=== PATIENT | male | born 1930 | race Asian ===

== ENCOUNTER 2018-10-19 18:26 | Emergency (ER) | payer MEDICARE, OTHER ==
[~2018-10-19] VITALS: Ht 167.6 cm; Wt 83.9 kg
[2018-10-19] MEDS ORDERED: Albuterol/Ipratropium 3ml neb ONE (18:34)
[2018-10-19] MEDS ORDERED: OMEPRAZOLE20 M2 ORAL (18:44)
[2018-10-19] MEDS ORDERED: ROBITUSSIN NIG237 M1 PO (18:44)
[2018-10-19] MEDS ORDERED: XARELTO15 MG ORAL (18:44)
[2018-10-19] MEDS ORDERED: NAMENDA10 MG ORAL (18:44)
[2018-10-19] MEDS ORDERED: ATIVAN0.5 MG ORAL (18:44)
[2018-10-19] MEDS ORDERED: MELATONIN3 MG ORAL (18:44)
[2018-10-19] MEDS ORDERED: NAMENDA XR14 MG PO (18:44)
[2018-10-19] MEDS ORDERED: LIPITOR20 MG ORAL (18:44)
[2018-10-19] MEDS ORDERED: VENTOLIN HFA18 GM INH (18:44)
[2018-10-19] MEDS ORDERED: DOCUSATE SODIU100 M2 ORAL (18:44)
[2018-10-19] MEDS ORDERED: LEXAPRO10 MG ORAL (18:44)
[2018-10-19] MEDS ORDERED: FUROSEMIDE20 M1 ORAL (18:44)
[2018-10-19] MEDS ORDERED: METOPROLOL TART50 M1 ORAL (18:44)
[2018-10-19] MEDS ORDERED: FEOSOL1 TAB ORAL (18:44)
[2018-10-19] MEDS ORDERED: MICARDIS40 MG ORAL (18:44)
[2018-10-19] MEDS ORDERED: HUMULIN R100 UNIT/1 SUBQ (18:44)
[2018-10-19] MEDS ORDERED: POTASSIUM CHLO10 ME2 PO (18:44)
[2018-10-19] MEDS ORDERED: NITROSTAT0.4 M2 SL (18:44)
[2018-10-19] MEDS ORDERED: CLONIDINE HCL0.1 MG PO (18:44)
[2018-10-19] MEDS: Metoprolol 5mg/5ml Inj IVP SCH ×2 (18:49→19:04)
[2018-10-19 18:53] LABS: HEMATOCRIT 34.1 % (42.0-52.0); HEMOGLOBIN 9.6 G/DL (14.2-18.0); MEAN CORPUSCULAR VOLUME 80 FL (80-99); PLATELET COUNT 357 K/UL (150-450); RED BLOOD COUNT 4.27 M/UL (4.70-6.10); RED CELL DISTRIBUTION WIDTH 22.1 % (11.6-14.8); WHITE BLOOD COUNT 15.6 K/UL (4.8-10.8)
[2018-10-19 19:07] VITALS: BP 66/51
[2018-10-19 19:08] LABS: ANION GAP 5 mmol/L (5-15); BLOOD UREA NITROGEN 50 mg/dL (7-18); CALCIUM 9.3 MG/DL (8.5-10.1); CARBON DIOXIDE 38 MMOL/L (21-32); CHLORIDE 101 MMOL/L (98-107); CREATININE 1.6 MG/DL (0.55-1.30); POTASSIUM 5.6 MMOL/L (3.5-5.1); SODIUM 143 MMOL/L (136-145)
--- NOTE | 2018-10-19 19:10 | NUR ---
ED Nurse Note: ER WCP UPLOADED
--- NOTE | 2018-10-19 19:14 | NUR ---
ED Nurse Note: PT. BROUGHT IN BY RA 29 FROM [facility] DUE TO SOB MORE THAN USUAL. PER RUBBER MILL OPERATOR, PT. WAS FOUND BY THE FAMILY MEMBER BEING MORE SOB THAN USUAL. PT. CAME IN WITH IV ACCESS ON THE L HAND WITH 20 GAUGE. PT. WAS 86%RA AND WAS GIVEN 15L O2 BY RUBBER MILL OPERATOR VIA NON-REBREATHER MASK. PT. IS CONFUSED AND NON-VERBAL. PT. HAS PRESSURE ULCER ON THE BUTTOCKS AREA
--- NOTE | 2018-10-19 19:15 | NUR ---
ED Nurse Note: ERMD AWARE OF PT LOW BP
--- NOTE | 2018-10-19 19:16 | NUR ---
ED Nurse Note: DAUGHTER AND ERMS AT THE BEDSIDE
--- NOTE | 2018-10-19 19:20 | NUR ---
ED Nurse Note: daughter roya and son ursula at bedside.
[2018-10-19 19:23] LABS: ALANINE AMINOTRANSFERASE 9 U/L (12-78); ALBUMIN 3.9 G/DL (3.4-5.0); ALBUMIN/GLOBULIN RATIO 1.1 (1.0-2.7); ALKALINE PHOSPHATASE 57 U/L (46-116); ASPARTATE AMINO TRANSFERASE 19 U/L (15-37); BILIRUBIN,TOTAL 0.7 MG/DL (0.2-1.0); CKMB 1.7 NG/ML (0.0-3.6); CREATINE KINASE 30 U/L (26-308)
--- NOTE | 2018-10-19 19:31 | Emergency Room Report ---
History of Present Illness General Chief Complaint: Dyspnea/Respdistress Source: Family Member, EMS Present Illness HPI 87-year-old male presents ED for evaluation. Brought in by EMS from [facility] facility. Noted to be short of breath today. History of CHF and A. fib. Appeared more short of breath today than baseline. O2 sats in the 80s. Upon arrival patient nonverbal. History of dementia. Tachycardic. Hypotensive as well. Unable to provide any additional history at this time. No other aggravating relieving factors. Denies any other associated symptoms Allergies: Coded Allergies: No Known Allergies (Unverified , 10/19/18) Patient History Past Medical History: DM, CAD, AFib, dementia Past Surgical History: none, pacemaker Pertinent Family History: none Social History: Denies: smoking, alcohol use, drug use Immunizations: UTD Reviewed Nursing Documentation: PMH: Agreed; PSxH: Agreed Nursing Documentation-PMH Hx Cardiac Problems: Yes - AFIB, PACEMAKER, CAD, CHF Hx Hypertension: Yes - ANEMIA Hx Diabetes: Yes Hx Cancer: Yes - COLON CA Hx Neurological Problems: Yes - DEMENTIA Review of Systems All Other Systems: limited Physical Exam Vital Signs Date Time Temp Pulse Resp B/P (MAP) Pulse Ox O2 Delivery O2 Flow Rate FiO2 10/19/18 18:24 126 26 114/86 (95) 86 Room Air 10/19/18 19:07 98.0 Sp02 EP Interpretation: reviewed, abnormal General Appearance: lethargic, other - nonverbal Head: normocephalic Eyes: bilateral eye normal inspection, bilateral eye PERRL ENT: hearing grossly normal, normal pharynx, no angioedema, normal voice Neck: full range of motion, supple/symm/no masses Respiratory: crackles Cardiovascular #1: tachycardia Gastrointestinal: normal bowel sounds, non tender, soft, non-distended, no guarding, no rebound Rectal: deferred Genitourinary: no CVA tenderness Musculoskeletal: normal inspection Neurologic: other - nonverbal Psychiatric: other - nonverbal Skin: other - see nursing notes for skin exam Lymphatic: normal inspection Procedures Critical Care Time Critical Care Time i. I feel this is a highly complex case requiring extensive working including EKG/Rhythm strip, Xray/CT/US, Blood/urine lab work, repeat exams while in ED, and administration of strong opiates/narcotics for pain control, admission to hospital or close patient follow up. Total time: 60 min bedside evaluation and treatment excludes procedures (EKG). Reason for critical care: SOB, hypotension, acidosis Possible complications: hypotension, hypertension, AZ, shock, arrhythmias, metabolic acidosis, end organ damage, respiratory failure. Interventions: labs, EKG, CXR, BIPAP, ABG, IVFs, antibiotics Course: Presenting with shortness of breath. History of CHF and A. fib. Patient given Lopressor x3 with cardioversion achieved. Patient has large right -sided effusion with whiteout on the left side. ABG shows significant acidosis with hypercapnia. Placed on BiPAP. Patient becoming hypotensive despite IV fluid boluses. Discussed with family. Patient is DNR, selective. They wish to not intubate the patient for undergo invasive measures such as central line with pressors. They understand that without further intervention patient's condition will deteriorate and worsen. 30 cc/kg fluid bolus given. Broad-spectrum antibiotics given. Consultations: nursing staff, EMS, family Performed by: Dr Lyons Tolerated well condition = critical j. because of unstable vital signs this patient had a condition that could potentially threaten life or limb. I feel this is a critical patient who required my full attention while patient was considered critical. Total Critical Care Time excluding procedures was greater than 60 minutes Medical Decision Making Diagnostic Impression: Primary Impression: CHF (congestive heart failure) Qualified Codes: I50.9 - Heart failure, unspecified Additional Impressions: Pleural effusion Atrial fibrillation with RVR Sepsis Qualified Codes: A41.9 - Sepsis, unspecified organism ER Course Hospital Course 87-year-old male presents with shortness of breath, tachycardic, hypoxia Differential diagnoses include: AZ/unstable angina, contusion, muscle strain, PTX, rib fracture Clinical course Patient placed on stretcher. on commercial collections driver. After initial history and physical I ordered labs, EKG, chest x-ray, IVFs, breathing treatments labs reviewed- noted leukocytosis, hemoglobin/hematocrit stable, lactic greater than 3, troponins negative, BNP elevated ABG acidosis, hypercapnia started on BIPAP EKGA. fib with RVR, no acute ischemic changes interpreted by me CXRWhite out on left lung, right pleural effusion on right despite fluid bolus patient becomes hypotensive. O2 sats not significantly improving on BiPAP. Discussed findings with family. Patient is DNR/selective. They wish not to intubate the patient and they wish not to proceed with invasive measures such as a central line and pressors. They understand that patient will continue to deteriorate and likely Patient given 30 cc/kg fluid bolus. Given broad-spectrum antibiotics. Dr. Estrada will admit the patient I. I feel this is a highly complex case requiring extensive working including EKG/Rhythm strip, Xray/CT/US, Blood/urine lab work, repeat exams while in ED, and administration of strong opiates/narcotics for pain control, admission to hospital or close patient follow up. Diagnosis - CHF, pleural effusion, afib wtih RVR, sepsis admitted to SDU in critical condition Labs Test 10/19/18 18:30 10/19/18 18:55 10/19/18 19:03 10/19/18 19:30 White Blood Count 15.6 K/UL (4.8-10.8) Red Blood Count 4.27 M/UL (4.70-6.10) Hemoglobin 9.6 G/DL (14.2-18.0) Hematocrit 34.1 % (42.0-52.0) Mean Corpuscular Volume 80 FL (80-99) Mean Corpuscular Hemoglobin 22.4 PG (27.0-31.0) Mean Corpuscular Hemoglobin Concent 28.1 G/DL (32.0-36.0) Red Cell Distribution Width 22.1 % (11.6-14.8) Platelet Count 357 K/UL (150-450) Mean Platelet Volume 5.6 FL (6.5-10.1) Neutrophils (%) (Auto) % (45.0-75.0) Lymphocytes (%) (Auto) % (20.0-45.0) Monocytes (%) (Auto) % (1.0-10.0) Eosinophils (%) (Auto) % (0.0-3.0) Basophils (%) (Auto) % (0.0-2.0) Differential Total Cells Counted 100 Neutrophils % (Manual) 85 % (45-75) Lymphocytes % (Manual) 9 % (20-45) Monocytes % (Manual) 5 % (1-10) Eosinophils % (Manual) 0 % (0-3) Basophils % (Manual) 0 % (0-2) Band Neutrophils 1 % (0-8) Platelet Estimate Adequate Platelet Morphology Normal Polychromasia 1+ Hypochromasia 2+ Anisocytosis 3+ Microcytosis 2+ Sodium Level 143 MMOL/L (136-145) Potassium Level 5.6 MMOL/L (3.5-5.1) Chloride Level 101 MMOL/L (98-107) Carbon Dioxide Level 38 MMOL/L (21-32) Anion Gap 5 mmol/L (5-15) Blood Urea Nitrogen 50 mg/dL (7-18) Creatinine 1.6 MG/DL (0.55-1.30) Estimat Glomerular Filtration Rate mL/min (>60) Glucose Level 61 MG/DL (74-106) Calcium Level 9.3 MG/DL (8.5-10.1) Total Bilirubin 0.7 MG/DL (0.2-1.0) Aspartate Amino Transf (AST/SGOT) 19 U/L (15-37) Alanine Aminotransferase (ALT/SGPT) 9 U/L (12-78) Alkaline Phosphatase 57 U/L (46-116) Total Creatine Kinase 30 U/L (26-308) Creatine Kinase MB 1.7 NG/ML (0.0-3.6) Creatine Kinase MB Relative Index 5.6 Troponin I 0.030 ng/mL (0.000-0.056) Pro-B-Type Natriuretic Peptide 2005 pg/mL (0-125) Total Protein 7.4 G/DL (6.4-8.2) Albumin 3.9 G/DL (3.4-5.0) Globulin 3.5 g/dL Albumin/Globulin Ratio 1.1 (1.0-2.7) Arterial Blood pH 7.220 (7.350-7.450) Arterial Blood Partial Pressure CO2 84.2 mmHg (35.0-45.0) Arterial Blood Partial Pressure O2 79.5 mmHg (75.0-100.0) Arterial Blood HCO3 33.7 mmol/L (22.0-26.0) Arterial Blood Oxygen Saturation 92.8 % (95-100) Arterial Blood Base Excess 4.4 (-2-2) Luis Test Positive Urine Color Yellow Urine Appearance Clear Urine pH 5 (4.5-8.0) Urine Specific [place] 1.020 (1.005-1.035) Urine Protein Negative (NEGATIVE) Urine Glucose (UA) Negative (NEGATIVE) Urine Ketones Negative (NEGATIVE) Urine Blood 1+ (NEGATIVE) Urine Nitrite Negative (NEGATIVE) Urine Bilirubin Negative (NEGATIVE) Urine Urobilinogen Normal MG/DL (0.0-1.0) Urine Leukocyte Esterase Negative (NEGATIVE) Urine RBC 0-2 /HPF (0 - 0) Urine WBC 0 /HPF (0 - 0) Urine Squamous Epithelial Cells None /LPF (NONE/OCC) Urine Amorphous Sediment Few /LPF (NONE) Urine Bacteria None /HPF (NONE) Lactic Acid Level 3.50 mmol/L (0.4-2.0) Test 10/19/18 20:30 EKG Diagnostic Results Rate: tachycardiac Rhythm: other - afib with RVR ST Segments: no acute changes ASA given to the pt in ED: No Rhythm Strip Diag. Results EP Interpretation: yes Rhythm: no PVC's, no ectopy Chest X-Ray Diagnostic Results Chest X-Ray Diagnostic Results : Chest X-Ray Ordered: Yes # of Views/Limited/Complete: 1 View Indication: Shortness of Breath EP Interpretation: Yes Interpretation: no pneumothorax, other - whiteout L lung. pleural effusion R lung Last Vital Signs Date Time Temp Pulse Resp B/P (MAP) Pulse Ox O2 Delivery O2 Flow Rate FiO2 10/19/18 19:07 98.0 113 26 66/51 94 Non-Rebreather Status: unchanged Disposition: ADMITTED INPATIENT Condition: Critical Referrals: NON PHYSICIAN (PCP) Efrain Lyons MD Oct 19, 2018 19:31
[2018-10-19 19:32] LABS: APPEARANCE,URINE CLEAR; BILIRUBIN, URINE NEGATIVE (NEGATIVE); GLUCOSE, URINE (UA) NEGATIVE (NEGATIVE); KETONES,URINE NEGATIVE (NEGATIVE); LEUKOCYTE ESTERASE ,URINE NEGATIVE (NEGATIVE); NITRITE,URINE NEGATIVE (NEGATIVE); PH,URINE 5 (4.5-8.0); PROTEIN,URINE NEGATIVE (NEGATIVE); UROBILINOGEN,URINE NORMAL MG/DL (0.0-1.0)
[2018-10-19] MEDS: Albuterol ud Inhalation HHN SCH ×4 (19:32→20:15)
[2018-10-19] MEDS: Ipratropium 0.02% Inh Soln 2.5ml UD HHN SCH ×4 (19:32→20:14)
[2018-10-19 19:37] LABS: COLOR,URINE YELLOW
[2018-10-19] MEDS ORDERED: Sodium Chloride 2,500 ML IVLG ONE (20:00)
[2018-10-19] MEDS ORDERED: Piperacillin/Tazobactam 3.375 GM in NS 110 ML IVPB ONE (20:00)
[2018-10-19 20:20] VITALS: BP 48/38
--- NOTE | 2018-10-19 20:20 | NUR ---
ED Nurse Note: REPEAT LACTIC SENT TO LAB
--- NOTE | 2018-10-19 20:40 | NUR ---
NURSE NOTES: Spoke with mickey HERNANDEZ RN, she gave telephone report. awaiting pt to arrive to unit.
--- NOTE | 2018-10-19 20:42 | NUR ---
ED Nurse Note: TELEPHONE REPORT GIVEN TO ISABEL JOHNSON
--- NOTE | 2018-10-19 20:50 | NUR ---
NURSE NOTES: personally went to ER and spoke with MD Hirsch. he stated he spoke with MD Estrada to establish plans for this pt.
--- NOTE | 2018-10-19 21:00 | NUR ---
NURSE NOTES: Called MD Estrada to establish orders and plans for pt. left a message, awaiting call back/ orders.
--- NOTE | 2018-10-19 21:16 | NUR ---
ED Nurse Note: per ermd place post abg order
--- NOTE | 2018-10-19 21:20 | NUR ---
ED Nurse Note: informed ermd of low bp, and decreased HR. family at bedside
--- NOTE | 2018-10-19 21:23 | NUR ---
NURSE NOTES: called MD Estrada for admitting orders/ plans for pt. left a message, awaiting a call back/ orders.
[2018-10-19 21:43] VITALS: BP 0/0
--- NOTE | 2018-10-19 21:43 | NUR ---
ED Nurse Note: ERMD CALLED TOD AT 2143 FAMILY AT BEDSIDE.
--- NOTE | 2018-10-19 21:45 | NUR ---
NURSE NOTES: escorted family back down to ER to see pt.
--- NOTE | 2018-10-19 21:53 | NUR ---
ED Nurse Note: [facility] notified and declined; spoke with compugraph operator [id number]. One [place] informed and declined; spoke with Coby DNN: [phone]. 2245: Dr. Sinan Riddle informed of . 2330: Darlene at [facility] informed of .
--- NOTE | 2018-10-19 23:30 | History and Physical Report ---
DATE OF ADMISSION: 10/19/2018 REASON FOR ADMISSION: Respiratory failure. HISTORY OF PRESENT ILLNESS: This is an 87-year-old Taj[place] male, who resides at a senior care facility. He became increasingly short of breath this afternoon and was transported by 911 to this emergency room. His oxygen saturations in the field were in the 80s and he arrived to the hospital in severe respiratory distress with hypotension, tachycardia, and signs of acute respiratory failure. The patient was given fluid challenges, beta-blockers for rapid heart rate and discussions were undertaken with family members regarding advance directives which initially were noted to be DNR . Family members elected to proceed with conservative management and avoid any invasive interventions, intubation, mechanical ventilation, or pressors. This was discussed with emergency room physician and me. Family members were aware that would likely ensue if condition did not rapidly improve. PAST MEDICAL HISTORY: 1. Atrial fibrillation. 2. Permanent pacemaker. 3. Cerebrovascular disease with dementia. 4. Coronary artery disease. 5. Type 2 diabetes mellitus. 6. Chronic anemia. 7. History of colon cancer. ALLERGIES: None. SOCIAL HISTORY: No record of smoking, alcohol, or substance abuse. Presently, resides at a senior care facility. REVIEW OF SYSTEMS: Not obtainable from patient. jail records reviewed x20 minutes and data obtained described above. PHYSICAL EXAMINATION: VITAL SIGNS: Afebrile. Blood pressure 114/86, pulse 126, respiratory rate 26. Initial room air oxygen sat 86%. Repeat vital signs, afebrile, blood pressure 66/51, pulse 113, respiratory rate 26. HEENT: Temporal wasting. Pale conjunctivae. Anicteric sclerae. Positive accessory muscle use. NECK: Elevated jugular venous pressure. LUNGS: Bilateral rhonchi. LUNGS: Diminished breath sounds on the left. HEART: Regular rhythm and rate. Normal S1, paradoxically split S2. No murmur due to loud respiratory sounds. ABDOMEN: Soft and nontender. EXTREMITIES: With poor capillary refill. No edema. NEUROLOGIC: With poor cognition and globally depressed mentation. LABORATORY AND DIAGNOSTIC DATA: EKG with atrial fibrillation, rapid ventricular response. Chest x-ray, white-out left lung with right pleural effusion as well. White count 15.6, hemoglobin 9.6. Sodium 143, potassium 5.6, bicarb 38, BUN 50, creatinine 1.6, glucose 61. Albumin 3.9. ABG 7.22, 84, 79. Urinalysis with no active sediment. IMPRESSION: 1. Acute respiratory failure. 2. Healthcare-acquired pneumonia. 3. Pleural effusions. 4. Probable collapsed lung. 5. Sepsis with shock. 6. Pacemaker. 7. Paroxysmal atrial fibrillation with rapid ventricular response. 8. Acute congestive heart failure likely diastolic. 9. Acute on chronic respiratory acidosis. 10. Anemia. 11. Lactic acidosis. 12. Acute on chronic renal failure. 13. Hyperkalemia. 14. Compensatory metabolic alkalosis. 15. Critical condition and grave prognosis. DISCUSSION AND PLAN: 1. Per family members, no intubation, no invasive procedures. We will initiate BiPAP support, panculture. Broad-spectrum antibiotics. 2. Volume resuscitation. 3. Pulmonary consultation, possible thoracentesis if condition permits. 4. No pressors per family wishes. 5. DVT prophylaxis, comfort measures. Uriel Estrada M.D. DR: Gualberto JOB#: [id number] CC:
[2018-10-20 00:40] VITALS: BP 0/0
--- NOTE | 2018-10-20 00:40 | NUR ---
ED Nurse Note: PT WAS BROUHT TO AYDE GUERRA, EMT AND CASPER RN
--- NOTE | 2018-10-20 12:45 | Diagnostic Imaging Report ---
Indication: Dyspnea Comparison: None A single view chest radiograph was obtained. Findings: There is complete opacification of the left hemithorax with slight deviation of the heart and trachea toward the right. There is a probable right pleural effusion as well. Pacemaker noted on the right. Aorta is moderately calcified. Bones are osteopenic. IMPRESSION: Complete opacification of the left hemithorax which may be due to a pleural effusion and/or atelectasis, or other causes. Suspect a small right pleural effusion
--- NOTE | 2018-10-20 13:21 | NUR ---
Nursing Environmental Professional NURSE NOTES: Call paced to Dr Riddle , per MD he is aware of decedent passing and he will sign the certificate.
--- NOTE | 2018-10-20 18:25 | Cardiology Report ---
APPROVED REPORT EKG Measurement Heart [id number] Atrial fibrillation with rapid ventricular response Rightward axis Incomplete right bundle branch block Nonspecific ST and T wave abnormality Abnormal ECG
== END 2018-10-20 00:40 | disposition expired ==
LOC: EDBD 18:26 → EMR 18:28 → 2W 19:06 → UNDOADMIN 19:06 → EDBEDREQ 20:27 → EMR 10-20 00:40
DX: I11.0 Hypertensive heart disease with heart failure (principal); I50.9 Heart failure, unspecified; I48.91 Unspecified atrial fibrillation; A41.9 Sepsis, unspecified organism; I25.10 Atherosclerotic heart disease of native coronary artery without angina pectoris; F03.90 Unspecified dementia, unspecified severity, without behavioral disturbance, psychotic disturbance, mood disturbance, and anxiety; Z66 Do not resuscitate; D72.829 Elevated white blood cell count, unspecified; E11.9 Type 2 diabetes mellitus without complications; Z95.0 Presence of cardiac pacemaker; D64.9 Anemia, unspecified; Z85.038 Personal history of other malignant neoplasm of large intestine
CPT/HCPCS: 36415; 36600; 71045; 80053; 81003; 82550; 82553; 82803; 83605; 83880; 84484; 85007; 85025; 87040; 87081; 93005; 94640; 94664; 96361; 96365; 99291; J2543; J7040; J7620